=== PATIENT | female | born 1980 | race Caucasian/White ===

== ENCOUNTER 2024-06-18 15:08 | Emergency (ER) | payer MEDICAID ==
[~2024-06-18] VITALS: Ht 167.6 cm; Wt 59.0 kg
[2024-06-18 15:11] VITALS: BP 143/97; PULSE 115; RESP 18; TEMP 36.7; O2SAT 99
[2024-06-18] MEDS: ACETAMINOPHEN 325MG TABLET PO ONE (15:43)
[2024-06-18] MEDS: BACITRACIN ZINC OINT UDPKT TOP ONE (15:44)
[2024-06-18] MEDS: TETANUS, DIPHTHERIA, PERTUSSIS VAC/PF 0.5ML (>10YR OLD) IM ONE (15:44)
[2024-06-18] MEDS: LIDOCAINE HCL/PF 1% 10 MG/ML 5ML VIAL INFIL ONE (15:45)
[2024-06-18] MEDS ORDERED: NAPR-1176 MT (18:22)
== END 2024-06-18 21:09 | disposition home or self-care (01) ==
LOC: ER 15:08
DX: S09.90XA Unspecified injury of head, initial encounter (principal); Z79.1 Long term (current) use of non-steroidal anti-inflammatories (NSAID); Y08.89XA Assault by other specified means, initial encounter; Y93.89 Activity, other specified; Y92.89 Other specified places as the place of occurrence of the external cause; Y99.8 Other external cause status
CPT/HCPCS: 70450; 90715; 90471; 99285; J2003; Z7610

== ENCOUNTER 2024-08-13 15:23 | Emergency (ER) | payer MEDICAID ==
[~2024-08-13] VITALS: Ht 167.6 cm; Wt 70.0 kg
[~2024-08-13 15:23] MED LIST: NAPR-1176 MT
[2024-08-13 15:32] VITALS: BP 103/84; PULSE 96; RESP 16; TEMP 37; O2SAT 99
[2024-08-13 17:34] LABS: BASOPHILS % 1.9 % (0.0-2.0); EOSINOPHILS % 0.8 % (0.0-5.0); HEMATOCRIT. 35.1 % (36.0-48.0); HEMOGLOBIN. 11.9 g/dL (12.0-16.0); MEAN CORPUSCULAR HEMOGLOBIN 31.2 pg (28.0-32.0); MEAN CORPUSCULAR HGB CONC 33.9 g/dL (31.0-37.0); MEAN CORPUSCULAR VOLUME 92.3 fL (81.0-99.0); MEAN PLATELET VOLUME 7.4 fl (7.4-10.4); MONOCYTES % 7.1 % (2.0-8.0); NEUTROPHILS % 60.2 % (40.0-76.0); PLATELET 229 x1000/uL (130-400); WHITE BLOOD COUNT 5.4 x1000/uL (4.5-11.0)
[2024-08-13 17:47] LABS: CHLORIDE 105 mEq/L (98-107); POTASSIUM 3.3 mEq/L (3.5-5.1); SODIUM 144 mEq/L (136-145)
[2024-08-13 17:48] LABS: CALCIUM 8.3 mg/dL (8.7-10.4); CARBON DIOXIDE 25 mEq/L (21-32)
[2024-08-13 17:53] LABS: CREATININE 0.7 mg/dL (0.6-1.0); ETHANOL BLOOD 237 mg/dL (<10); GLUCOSE 108 mg/dL (70-105); UREA NITROGEN BLOOD 9 mg/dL (9-23)
[2024-08-13 17:55] LABS: ACETAMINOPHEN < 2 ug/mL (10-30)
[2024-08-13] MEDS ORDERED: POTASSIUM CHLORIDE 20MEQ/PACKET PO SCH (18:00)
== END 2024-08-13 19:23 | disposition left against medical advice (07) ==
LOC: ER 15:23
DX: T74.21XA Adult sexual abuse, confirmed, initial encounter (principal); Z59.00 Homelessness unspecified; Z79.1 Long term (current) use of non-steroidal anti-inflammatories (NSAID); X58.XXXA Exposure to other specified factors, initial encounter; Y93.89 Activity, other specified; Y92.89 Other specified places as the place of occurrence of the external cause; Y99.8 Other external cause status
CPT/HCPCS: 36415; 80048; 80307; 80320; 80329; 85025; 99283; G0480

== ENCOUNTER 2024-12-05 16:36 | Emergency (ER) | payer MEDICAID ==
[~2024-12-05] VITALS: Ht 167.6 cm; Wt 63.0 kg
[2024-12-05 16:42] VITALS: BP 132/80; PULSE 78; RESP 20; TEMP 37.1; O2SAT 98
== END 2024-12-05 16:44 | disposition left against medical advice (07) ==
LOC: ER 16:36
DX: M25.561 Pain in right knee (principal)
CPT/HCPCS: 99281

== ENCOUNTER 2024-12-05 17:48 | Emergency (ER) | payer MEDICAID | END 2024-12-05 18:07 | disposition left against medical advice (07) | LOC: ER 17:48 | DX: M79.604 Pain in right leg (principal) | CPT/HCPCS: 99281 ==

== ENCOUNTER 2025-01-22 13:44 | Emergency (ER) | payer OTHER, MEDICAID ==
[~2025-01-22] VITALS: Ht 172.7 cm; Wt 70.0 kg
[2025-01-22 13:46] VITALS: BP 146/93; PULSE 102; RESP 18; TEMP 97.2; O2SAT 98
[2025-01-22] MEDS: ACETAMINOPHEN 325MG TABLET PO ONE (15:19)
== END 2025-01-22 16:43 | disposition left against medical advice (07) ==
LOC: ER 13:44
DX: S97.82XA Crushing injury of left foot, initial encounter (principal); Z79.1 Long term (current) use of non-steroidal anti-inflammatories (NSAID); V03.10XA Pedestrian on foot injured in collision with car, pick-up truck or van in traffic accident, initial encounter; Y93.89 Activity, other specified; Y92.89 Other specified places as the place of occurrence of the external cause; Y99.8 Other external cause status
CPT/HCPCS: 99283